=== PATIENT | female | born 1980 | race Caucasian/White ===

== ENCOUNTER 2017-05-17 08:39 | Day surgery (SDC) | payer BC ==
[2017-05-15 16:36] LABS: MEAN CORPUSCULAR HEMOGLOBIN 29.9 PG (27.0-31.0); MEAN CORPUSCULAR HGB CONC 33.8 % (33.0-36.5); MEAN CORPUSCULAR VOLUME 88.5 FL (78-98); MEAN PLATELET VOLUME 8.2 FL (7.4-10.4); PRE OP HEMATOCRIT 39.8 % (35.0-45.0); PRE OP HEMOGLOBIN 13.4 g/dL (12.0-16.0); PRE OP PLATELET COUNT 193 X10'3 (140-440); RED BLOOD COUNT 4.49 X10'6 (4.20-5.60); RED CELL DISTRIBUTION WIDTH 13.2 % (11.5-14.5)
[2017-05-15 16:37] LABS: CLARITY,URINE Clear (Clear); COLOR,URINE Yellow (Yellow); GLUCOSE, URINE Negative (Neg); KETONES,URINE Negative (Neg); LEUKOCYTE ESTERASE ,URINE Negative (Neg); NITRITES, URINE Negative (Neg); OCCULT BLOOD,URINE Negative (Neg); PROTEIN,URINE Negative (Neg); UROBILINOGEN,URINE 0.2 E.U/dL (0.2-1.0)
[2017-05-15 16:40] LABS: UA COLLECTION TYPE CLN CATCH MIDSTREAM
[2017-05-15 16:47] LABS: HCG SERUM QL NEGATIVE
[2017-05-15 16:51] LABS: ALBUMIN 3.3 G/DL (3.4-5.0); ALKALINE PHOSPHATASE 69 IU/L (46-116); BLOOD UREA NITROGEN 14 MG/DL (7-18); BUN/CREATININE RATIO 12.7 (6.6-38.0); CALCIUM 8.6 MG/DL (8.5-10.1); CHLORIDE 105 MMOL/L (99-107); PRE OP ALT 29 U/L (30-65); PRE OP ANION GAP 4 (8-16); PRE OP AST 14 U/L (10-37); PRE OP BILIRUB, TOTAL 0.3 MG/DL (0.0-1.0); PRE OP GLUCOSE 68 MG/DL (70-104); PRE OP SODIUM 140 MMOL/L (135-145); TOTAL PROTEIN 6.7 G/DL (6.4-8.2); eGFR 56 ML/MIN
[2017-05-15 17:04] LABS: PRE OP POTASSIUM 3.1 MMOL/L (3.4-5.1)
[2017-05-15 18:27] LABS: PLATELET ESTIMATE NORMAL; TOTAL CELLS COUNTED 100
[2017-05-15 18:28] LABS: SMUDGE CELLS 1+
[2017-05-17] VITALS (21 sets, daily range): BP systolic 93–144; BP diastolic 55–97
[~2017-05-17] VITALS: Ht 167.6 cm; Wt 74.3 kg
[~2017-05-17 08:39] MED LIST: AMIT-189 PO; AZIT500T2 PO; CEFOXITIN 1000 MG in NS IV.SOLN 100 ML IV ONE; GLUC-131 PO; MULT-1085 PO
[2017-05-17] MEDS ORDERED: LIDOcaine 1% (10mg/ml) 2ml vial ONE (09:04)
[2017-05-17] MEDS ORDERED: BUPIVAcaine/PF 2.5 mg/ml (0.25%) 30ml vial ONE (09:15)
[2017-05-17] MEDS ORDERED: epiNEPHrine 1 mg/ml inj ONE (09:15)
[2017-05-17] MEDS ORDERED: clindamycin phosphate 40gm vag cream ONE (09:15)
[2017-05-17] MEDS ORDERED: famotidine 20mg tablet PO ONE (09:15)
[2017-05-17] MEDS ORDERED: neomy sulf/polymyxin B sulf. GU irrigation 1ml amp IR ONE (09:16)
[2017-05-17] MEDS ORDERED: vasoPRESSIN 20 units/ml inj. ONE (09:16)
[2017-05-17] MEDS ORDERED: ringers solution, lacted 1,000 ML IV SCH ×2 (09:34→12:03)
[2017-05-17 09:46] LABS: ALBUMIN 3.2 G/DL (3.4-5.0); ANION GAP 4 (8-16); BLOOD UREA NITROGEN 11 MG/DL (7-18); BUN/CREATININE RATIO 13.8 (6.6-38.0); CALCIUM 8.5 MG/DL (8.5-10.1); CHLORIDE 103 MMOL/L (99-107); GLUCOSE 94 MG/DL (70-104); POTASSIUM 3.8 MMOL/L (3.5-5.1); SODIUM 138 MMOL/L (135-145); TOTAL CARBON DIOXIDE 30.7 MMOL/L (24-32); eGFR 81 ML/MIN
[2017-05-17] MEDS ORDERED: sevoflurane 250ml liquid IH ONE (10:48)
[2017-05-17] MEDS ORDERED: fentaNYL/PF 50MCG/1 ML 2ML syringe ONE ×2 (10:50→11:13)
[2017-05-17] MEDS ORDERED: midazolam 2 mg/2 ml injection ONE (10:50)
[2017-05-17] MEDS ORDERED: ePHEDrine 50MG/ML INJ. ONE (11:18)
[2017-05-17] MEDS ORDERED: rocuronium 10mg/ml inj IV ONE (11:18)
[2017-05-17] MEDS ORDERED: LIDOcaine 2% (20mg/ml) 5ml vial ONE (11:18)
[2017-05-17] MEDS ORDERED: propofol inj 20 ML IV ONE (11:18)
[2017-05-17] MEDS ORDERED: ondansetron/PF 4mg/2ml inj ONE (11:19)
[2017-05-17] MEDS ORDERED: dexamethasone sod phosphate 4mg/ml inj. ONE (11:19)
[2017-05-17] MEDS ORDERED: neostigmine methylsulfate 1 MG/ML 10ml vial ONE (11:19)
[2017-05-17] MEDS ORDERED: glycopyrrolate 0.2mg/ml inj ONE (11:19)
[2017-05-17] MEDS ORDERED: BUPIVAcaine/PF 2.5 mg/ml (0.25%) 30ml vial IJ ONE (11:40)
[2017-05-17] MEDS ORDERED: meperidine/PF 25mg/ml syringe IV PRN ×2 (12:05)
[2017-05-17] MEDS ORDERED: proCHLORperazine 10 MG/2 ml inj IV PRN (12:05)
[2017-05-17] MEDS ORDERED: ondansetron/PF 4mg/2ml inj IV PRN (12:05)
[2017-05-17] MEDS ORDERED: diphenhydrAMINE 50 mg/ml inj IV PRN (12:25)
[2017-05-17] MEDS ORDERED: magnesium hydroxide 30ml (MOM) UD suspension PO PRN (12:25)
[2017-05-17] MEDS ORDERED: LORazepam 2 mg/ml vial IV PRN (12:25)
[2017-05-17] MEDS ORDERED: normal saline 500ml IV soln 500 ML IV PRN (12:25)
[2017-05-17] MEDS ORDERED: metoclopramide 5 mg/ml inj IV PRN (12:25)
[2017-05-17] MEDS ORDERED: HYDROcodone/acetaminophen 10/325mg tab PO PRN ×2 (12:25)
[2017-05-17] MEDS ORDERED: temazepam 15mg capsule PO PRN (12:25)
[2017-05-17] MEDS: ketorolac trometh. 30mg/ml inj. IV PRN ×2 (12:44→20:10)
[2017-05-17] MEDS: meperidine/PF 25mg/ml syringe IV PRN ×4 (12:44→14:11)
[2017-05-17] MEDS: simethicone 80mg chew tab PO SCH ×2 (13:00→18:02)
[2017-05-17] MEDS: ondansetron/PF 4mg/2ml inj IV PRN ×2 (15:43→23:12)
[2017-05-17] MEDS: HYDROcodone/acetaminophen 10/325mg tab PO PRN ×2 (15:44→23:12)
[2017-05-17] MEDS: docusate sod 100mg capsule PO SCH (20:09)
[2017-05-18] VITALS: BP 102/62
[2017-05-18] MEDS: ketorolac trometh. 30mg/ml inj. IV PRN ×2 (02:26→10:13)
[2017-05-18 04:57] LABS: BASOPHILS % (AUTO) 0.1 % (0-1); EOSINOPHILS % (AUTO) 0.1 % (0-6); HEMATOCRIT 36.8 % (35.0-45.0); HEMOGLOBIN 13.1 g/dl (12.0-16.0); LYMPHOCYTES # (AUTO) 0.8 X10'3 (1.1-4.8); LYMPHOCYTES % (AUTO) 4.6 % (21-51); MEAN CORPUSCULAR HEMOGLOBIN 31.1 PG (27.0-31.0); MEAN CORPUSCULAR HGB CONC 35.6 % (33.0-36.5); MEAN CORPUSCULAR VOLUME 87.3 FL (78-98); MEAN PLATELET VOLUME 8.4 FL (7.4-10.4); MONOCYTES # (AUTO) 0.9 X10'3 (0-0.9); MONOCYTES % (AUTO) 5.1 % (2-12); NEUTROPHILS # (AUTO) 15.9 X10'3 (1.8-7.7); NEUTROPHILS % (AUTO) 90.1 % (42-75); PLATELET COUNT 197 X10'3 (140-440); RED BLOOD COUNT 4.22 X10'6 (4.20-5.60); RED CELL DISTRIBUTION WIDTH 11.8 % (11.5-14.5); WHITE BLOOD COUNT 17.6 X10'3 (4.5-11.0)
[2017-05-18 05:10] LABS: ALBUMIN 2.9 G/DL (3.4-5.0); ANION GAP 4 (8-16); BLOOD UREA NITROGEN 8 MG/DL (7-18); BUN/CREATININE RATIO 7.3 (6.6-38.0); CALCIUM 8.6 MG/DL (8.5-10.1); CHLORIDE 102 MMOL/L (99-107); GLUCOSE 141 MG/DL (70-104); POTASSIUM 4.5 MMOL/L (3.5-5.1); SODIUM 138 MMOL/L (135-145); TOTAL CARBON DIOXIDE 31.9 MMOL/L (24-32); eGFR 56 ML/MIN
[2017-05-18] MEDS: HYDROcodone/acetaminophen 10/325mg tab PO PRN (05:37)
[2017-05-18] MEDS: ondansetron/PF 4mg/2ml inj IV PRN (05:37)
[2017-05-18 07:00] VITALS: BP 133/60
[2017-05-18] MEDS ORDERED: enoxaparin 40mg/0.4ml syringe SQ SCH (08:00)
[2017-05-18] MEDS: simethicone 80mg chew tab PO SCH (08:05)
[2017-05-18] MEDS: docusate sod 100mg capsule PO SCH (08:05)
== END 2017-05-18 11:45 | disposition home or self-care (01) ==
LOC: PAS 08:39 → SUR 3N 12:25 → PAS 05-18 11:45
PROVIDERS: ATTEND Obstetrics & Gynecology Obstetrics
DX: D25.9 Leiomyoma of uterus, unspecified (principal); N72 Inflammatory disease of cervix uteri; N94.6 Dysmenorrhea, unspecified; N83.8 Other noninflammatory disorders of ovary, fallopian tube and broad ligament; G43.909 Migraine, unspecified, not intractable, without status migrainosus; K21.9 Gastro-esophageal reflux disease without esophagitis; J45.909 Unspecified asthma, uncomplicated; Z86.718 Personal history of other venous thrombosis and embolism; Z98.890 Other specified postprocedural states; Z98.51 Tubal ligation status; Z79.1 Long term (current) use of non-steroidal anti-inflammatories (NSAID); Z79.899 Other long term (current) drug therapy; Z86.73 Personal history of transient ischemic attack (TIA), and cerebral infarction without residual deficits; Z88.6 Allergy status to analgesic agent
CPT/HCPCS: 36415; 58552; 71046; 80048; 80053; 81003; 84703; 85025; 86885; 86900; 86901; 87070; A4315; J0171; J0694; J1100; J1650; J1885; J2001; J2175; J2250; J2405; J2704; J2710; J3010; J3490; J7030; J7120; A7000

== ENCOUNTER 2021-08-02 17:45 | Inpatient (IN) | payer BC ==
[~2021-08-02] VITALS: Ht 165.1 cm; Wt 71.7 kg
[~2021-08-02 17:45] MED LIST changes: -CEFOXITIN 1000 MG in NS IV.SOLN 100 ML IV ONE
--- NOTE | 2021-08-02 17:55 | NUR ---
TO CT AT THIS TIME VIA WHEELCHAIR.
--- NOTE | 2021-08-02 18:10 | NUR ---
Arrived to ER bed 16 for stroke alert level1 , scans done and neuro exam being done.
--- NOTE | 2021-08-02 18:28 | NUR ---
STROKE RN IS AT BEDSIDE. JOSH IN ROOM.
[2021-08-02 18:29] LABS: BASOPHILS % (AUTO) 0.5 % (0-1); EOSINOPHILS # (AUTO) 0.1 X10'3 (0-0.9); EOSINOPHILS % (AUTO) 2.3 % (0-6); HEMATOCRIT 39.2 % (35.0-45.0); HEMOGLOBIN 13.5 g/dl (12.0-16.0); LYMPHOCYTES # (AUTO) 1.2 X10'3 (1.1-4.8); LYMPHOCYTES % (AUTO) 26.1 % (21-51); MEAN CORPUSCULAR HEMOGLOBIN 29.6 PG (27.0-31.0); MEAN CORPUSCULAR HGB CONC 34.5 g/dL (33.0-36.5); MEAN CORPUSCULAR VOLUME 85.9 FL (78-98); MEAN PLATELET VOLUME 8.8 FL (7.4-10.4); MONOCYTES # (AUTO) 0.4 X10'3 (0-0.9); MONOCYTES % (AUTO) 10.1 % (2-12); NEUTROPHILS # (AUTO) 2.7 X10'3 (1.8-7.7); PLATELET COUNT 220 X10'3 (140-440); RED BLOOD COUNT 4.57 X10'6 (4.20-5.60); RED CELL DISTRIBUTION WIDTH 13.4 % (11.5-14.5); WHITE BLOOD COUNT 4.5 X10'3 (4.5-11.0)
[2021-08-02 18:43] LABS: APTT 28 SECONDS (22-32)
[2021-08-02 18:45] LABS: ALANINE AMINOTRANSFERASE 36 U/L (12-78); ALBUMIN/GLOBULIN RATIO 1.2 (1.1-1.5); ALKALINE PHOSPHATASE 55 IU/L (46-116); ANION GAP 8 (8-16); ASPARTATE AMINO TRANSFERASE 21 U/L (10-37); BILIRUBIN,TOTAL 0.4 MG/DL (0.1-1.0); BLOOD UREA NITROGEN 14 MG/DL (7-18); BUN/CREATININE RATIO 17.3 (6.6-38.0); CHLORIDE 105 MMOL/L (99-107); CREATININE 0.81 MG/DL (0.40-0.90); GLUCOSE 100 MG/DL (70-104); POTASSIUM 3.5 MMOL/L (3.5-5.1); SODIUM 140 MMOL/L (135-145); TOTAL CARBON DIOXIDE 26.6 MMOL/L (24-32); TOTAL PROTEIN 7.4 G/DL (6.4-8.2); eGFR 78 ML/MIN
--- NOTE | 2021-08-02 18:45 | NUR ---
with the nurse swallow assessment I noted that she does not have a gag reflex bilaterally but she swallows without issues, no signs of aspiration. She does have head ache above the right eye that is pounding/pressure in description with 7/10 pain. She has tingling to the left face and left leg still and still with vision issues. She can't see the wall with her left eye and she can only see my face/ and my left eye not my right eye. I have asked word complaint clerk to call SOC to have neurologist see .
--- NOTE | 2021-08-02 19:00 | NUR ---
At about this time neurology did the telemedicine evaluation, she gave me verbal consent to do the SOC evaluation.
--- NOTE | 2021-08-02 19:18 | NUR ---
I started giving her the TPA at this time with the bolus and then started the infusion.
[2021-08-02] MEDS ORDERED: proCHLORperazine 10 MG/2 ml inj IV ONE (19:40)
[2021-08-02 19:45] VITALS: BP 118/79
[2021-08-02] MEDS ORDERED: normal saline 1000ml 1,000 ML IV ONE (20:30)
[2021-08-02] MEDS ORDERED: PERFLUTREN PROTEIN-A MICROSPHR (Optison) 0.22 MG/ML 3ML VIAL IV PRN (21:30)
[2021-08-02] MEDS: normal saline 1000ml 1,000 ML IV SCH (21:42)
--- NOTE | 2021-08-02 22:55 | NUR ---
I have received report from Marleny MCCOY form ED and had the opportunity to ask questions. RM is set up and ready for PT arrival.
[2021-08-02 23:30] VITALS: BP 112/75
--- NOTE | 2021-08-02 23:30 | NUR ---
PT arrived to unit @ [id number]. 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 PT states that the peripheral vision has slightly improved to her RT eye, she is able to see objects that are straight ahead, PT states that she is still having some visual disturbances in the LT eye, she states that there is a diagonal line in her left eye, she can see from the RT half of the LT eye. PT has 20g PIV to Bilat AC's. Bed is locked and low. Call light in reach. Will continue to monitor.
[2021-08-02 23:45] VITALS: BP 112/75
[2021-08-03] VITALS (38 sets, daily range): BP systolic 96–124; BP diastolic 62–76
[2021-08-03] MEDS ORDERED: acetaminophen 325mg tablet PO ONE ×2 (02:25→02:45)
--- NOTE | 2021-08-03 02:45 | NUR ---
Call placed to On-call Tele Med ICU MD. PT is complaining of headache to RT side. Received a one time order of 650mg PO Tylenol.
--- NOTE | 2021-08-03 04:30 | NUR ---
PT stated she has improvement to her vision.
--- NOTE | 2021-08-03 06:34 | NUR ---
Problems reprioritized. Patient report given, questions answered & plan of care reviewed with Huy MCCOY.
--- NOTE | 2021-08-03 07:18 | NUR ---
Patient in room ICU 2042. I have received report from Caprice MCCOY and had the opportunity to ask questions and assume patient care.
[2021-08-03 07:27] LABS: CHOL/HDL RATIO 2.4 (0.00-4.99); CHOLESTEROL 131 MG/DL (0-200); HDL CHOLESTEROL 55 MG/DL (35-60); LDL CHOLESTEROL 66 MG/DL (50-100); TRIGLYCERIDES 69 MG/DL (20-135)
[2021-08-03 07:53] LABS: BASOPHILS % (AUTO) 0.5 % (0-1); EOSINOPHILS # (AUTO) 0.1 X10'3 (0-0.9); EOSINOPHILS % (AUTO) 2.6 % (0-6); HEMOGLOBIN 13.6 g/dl (12.0-16.0); LYMPHOCYTES # (AUTO) 0.9 X10'3 (1.1-4.8); LYMPHOCYTES % (AUTO) 21.1 % (21-51); MEAN CORPUSCULAR HEMOGLOBIN 28.9 PG (27.0-31.0); MEAN CORPUSCULAR HGB CONC 34.1 g/dL (33.0-36.5); MEAN CORPUSCULAR VOLUME 84.9 FL (78-98); MEAN PLATELET VOLUME 8.8 FL (7.4-10.4); MONOCYTES # (AUTO) 0.5 X10'3 (0-0.9); MONOCYTES % (AUTO) 10.5 % (2-12); NEUTROPHILS # (AUTO) 2.8 X10'3 (1.8-7.7); NEUTROPHILS % (AUTO) 65.3 % (42-75); PLATELET COUNT 200 X10'3 (140-440); RED BLOOD COUNT 4.71 X10'6 (4.20-5.60); RED CELL DISTRIBUTION WIDTH 13.4 % (11.5-14.5); WHITE BLOOD COUNT 4.3 X10'3 (4.5-11.0)
[2021-08-03 08:15] LABS: ALANINE AMINOTRANSFERASE 30 U/L (12-78); ALBUMIN 3.5 G/DL (3.4-5.0); ALBUMIN/GLOBULIN RATIO 1.1 (1.1-1.5); ALKALINE PHOSPHATASE 53 IU/L (46-116); ANION GAP 9 (8-16); ASPARTATE AMINO TRANSFERASE 20 U/L (10-37); BILIRUBIN,TOTAL 0.8 MG/DL (0.1-1.0); BLOOD UREA NITROGEN 11 MG/DL (7-18); BUN/CREATININE RATIO 15.7 (6.6-38.0); CALCIUM 8.5 MG/DL (8.5-10.1); CHLORIDE 108 MMOL/L (99-107); GLUCOSE 93 MG/DL (70-104); POTASSIUM 3.5 MMOL/L (3.5-5.1); SODIUM 140 MMOL/L (135-145); TOTAL CARBON DIOXIDE 22.9 MMOL/L (24-32); TOTAL PROTEIN 6.7 G/DL (6.4-8.2); eGFR > 90 ML/MIN
[2021-08-03] MEDS ORDERED: acetaminophen 325mg tablet PO PRN (08:55)
--- NOTE | 2021-08-03 10:25 | NUR ---
Upon report this morning, PT had reported to night nurse that her admit baseline vision changes had improved throughout the night, but have still not returned to normal. I spoke with her upon first assessment to get a better idea of what kind of vision changes she experienced and is continuing to experience. Pt states that symptoms started yesterday evening (08/02/21) while she was getting ready to leave work. She was on the phone with her and had an immediate overwhelming feeling of left sided tingling from head to toe. She states it felt like "Pins and needles" along with "numbness". She then had a change in her vision, and a sharp shooting pain in her right caodaism. She stated her vision was very blurry and that horizontally, her vision seemed to be split and she was unable to see the bottom half of anything in her vision field. This morning she stated her vision is better. The blurriness has subsided a little on both sides, though she does still have the horizontal vision change. She said it seems to be worse in the left eye than the right, and though its better than yesterday, its still not at all normal. At 0845 she reported she still is experiencing a headache on her right side. She was given tylenol in the ED at 0245, but stated that it didnt help. Dr Bae came into the room about 0900 and I asked if we could give her something since she had no PRNs ordered. He stated to give her another dose of tylenol, and if that didnt work, he would order something a little stronger. I put in a verbal order for 650mg tylenol (dose verbally approved by Dr Torres) and administered it at 0905. At 1030, pt reported there was no change in relief. Dr Torres verbally ordered a 1x dose of 2mg morphine and 4mg of zofran PRN during rounds.
[2021-08-03] MEDS ORDERED: morphine 2 MG/ML inj. syringe IV ONE (10:30)
[2021-08-03] MEDS ORDERED: ondansetron/PF 4mg/2ml inj IV PRN (10:30)
[2021-08-03] MEDS ORDERED: KEN0.1O TOP (11:44)
[2021-08-03] MEDS: pantoprazole 40mg Tablet.DR PO SCH (12:05)
[2021-08-03] MEDS: normal saline 1000ml 1,000 ML IV SCH (12:06)
[2021-08-03 15:13] LABS: HEMOGLOBIN A1C 5.3 % (4.5-6.2)
--- NOTE | 2021-08-03 15:45 | NUR ---
Pt stated earlier that the morphine dose (2mg) worked extremely well for her headache. At 1530 she stated her headache is starting to return and asked if she could have another dose. I got a verbal order from Dr Bae for a Q4 PRN order of morphine 2mg.
[2021-08-03] MEDS: morphine 2 MG/ML inj. syringe IV PRN ×2 (15:57→20:53)
[2021-08-03] MEDS: ondansetron/PF 4mg/2ml inj IV PRN ×2 (15:58→20:52)
--- NOTE | 2021-08-03 18:00 | NUR ---
Pt transported to and from MRI without incident. Returned to room, hooked back up to IV and vitals. Vitals stable upon return.
--- NOTE | 2021-08-03 18:19 | NUR ---
Problems reprioritized. Patient report given, questions answered & plan of care reviewed with Hernandez..
--- NOTE | 2021-08-03 18:38 | NUR ---
Shift note: I reviewed Adams's RN, orientee from PCU, charting on this pt as well as her care and her documentation reflects the care provided for this pt. Problems reprioritized. Patient report given, questions answered & plan of care reviewed with Ty MCCOY.
--- NOTE | 2021-08-03 18:43 | NUR ---
MRI note Pt was taken to MRI at about 1700 and returned at 1755. Tolerated MRI well. Pt was able to ambulate from bed to w/c, w/c to MRI bed and back to bed w/minimal assistance.
[2021-08-03] MEDS ORDERED: aspirin 325mg tablet, delayed-release (Ecotrin) PO ONE (18:50)
--- NOTE | 2021-08-03 22:20 | NUR ---
Upon receiving report at 1800, bedside neuro assessment done with off going RN. No new symptoms noted. received call from radiologist who stated MRI showed acute area of infarct, results were then conveyed to DR. Torres who was at bedside who then called neurologist to update on MRI results. Dr Torres ordered one time dose of aspirin to be given tonight. Post TPA assessments to complete tonight at 1945. See flowsheets for assessment findings.
[2021-08-04] VITALS (8 sets, daily range): BP systolic 92–110; BP diastolic 54–70
[2021-08-04] MEDS: normal saline 1000ml 1,000 ML IV SCH ×2 (02:06→16:24)
[2021-08-04] MEDS: ondansetron/PF 4mg/2ml inj IV PRN (03:31)
[2021-08-04] MEDS: morphine 2 MG/ML inj. syringe IV PRN (03:32)
[2021-08-04 05:51] LABS: BASOPHILS % (AUTO) 0.4 % (0-1); EOSINOPHILS # (AUTO) 0.1 X10'3 (0-0.9); EOSINOPHILS % (AUTO) 2.9 % (0-6); HEMATOCRIT 39.2 % (35.0-45.0); HEMOGLOBIN 13.2 g/dl (12.0-16.0); LYMPHOCYTES # (AUTO) 1.1 X10'3 (1.1-4.8); LYMPHOCYTES % (AUTO) 20.9 % (21-51); MEAN CORPUSCULAR HEMOGLOBIN 29.1 PG (27.0-31.0); MEAN CORPUSCULAR HGB CONC 33.5 g/dL (33.0-36.5); MEAN CORPUSCULAR VOLUME 86.7 FL (78-98); MEAN PLATELET VOLUME 8.6 FL (7.4-10.4); MONOCYTES # (AUTO) 0.6 X10'3 (0-0.9); MONOCYTES % (AUTO) 11.6 % (2-12); NEUTROPHILS # (AUTO) 3.2 X10'3 (1.8-7.7); NEUTROPHILS % (AUTO) 64.2 % (42-75); PLATELET COUNT 188 X10'3 (140-440); RED BLOOD COUNT 4.52 X10'6 (4.20-5.60); RED CELL DISTRIBUTION WIDTH 13.7 % (11.5-14.5); WHITE BLOOD COUNT 5.1 X10'3 (4.5-11.0)
[2021-08-04 06:11] LABS: ALBUMIN 3.2 G/DL (3.4-5.0); ANION GAP 8 (8-16); BLOOD UREA NITROGEN 10 MG/DL (7-18); BUN/CREATININE RATIO 13.3 (6.6-38.0); CALCIUM 8.3 MG/DL (8.5-10.1); CHLORIDE 109 MMOL/L (99-107); CREATININE 0.75 MG/DL (0.40-0.90); GLUCOSE 106 MG/DL (70-104); POTASSIUM 3.8 MMOL/L (3.5-5.1); SODIUM 139 MMOL/L (135-145); TOTAL CARBON DIOXIDE 22.2 MMOL/L (24-32); eGFR 85 ML/MIN
--- NOTE | 2021-08-04 06:49 | NUR ---
Patient in room ICU 2042. I have received report from Hernandez MCCOY and had the opportunity to ask questions and assume patient care.
[2021-08-04] MEDS: pantoprazole 40mg Tablet.DR PO SCH (07:42)
--- NOTE | 2021-08-04 08:00 | NUR ---
Left AC 20 dharmesh PIV removed per patient request. She stated it was very sore and uncomfortable. Catheter was intact upon removal, site was taped with gauze with minimal bleeding.
--- NOTE | 2021-08-04 08:37 | NUR ---
Start of shift physical assessment, neuro assessment, and vitals done. Vitals stable, normal assessment, unchanged neuro assessment. Patient is alert and says her headache is minimal currently. She states she wants to hold off on the next dose of morphine to see how she does. She is curious if it will be better today without medication, or if it continues to be severe.
--- NOTE | 2021-08-04 09:00 | NUR ---
D/C of NS infusion. Patient is drinking PO fluids.
[2021-08-04] MEDS: aspirin 81mg, enteric-coated 1 TAB TABLET.DR PO SCH (11:13)
--- NOTE | 2021-08-04 14:28 | NUR ---
I have received report from NADINE Samuels and had the opportunity to ask questions and assume patient care.
--- NOTE | 2021-08-04 14:30 | NUR ---
Pt transported via wheelchair to Surgical floor, room 348. Transfer of care report given to RN prior to transport.
--- NOTE | 2021-08-04 14:35 | NUR ---
Pt arrived to surgical floor via wheelchair, accompanied by son. Pt settled in room 348B, BLL, call light within reach.
--- NOTE | 2021-08-04 18:30 | NUR ---
Problems reprioritized. Patient report given, questions answered & plan of care reviewed with NADINE Everett.
[2021-08-05] VITALS: BP 100/66
--- NOTE | 2021-08-05 06:29 | NUR ---
Patient in room [facility]RE[facility] 348. I have received report from NADINE Everett and had the opportunity to ask questions and assume patient care.
[2021-08-05 06:52] LABS: BASOPHILS % (AUTO) 0.6 % (0-1); EOSINOPHILS # (AUTO) 0.2 X10'3 (0-0.9); EOSINOPHILS % (AUTO) 3.6 % (0-6); HEMATOCRIT 40.3 % (35.0-45.0); HEMOGLOBIN 13.5 g/dl (12.0-16.0); LYMPHOCYTES # (AUTO) 1.3 X10'3 (1.1-4.8); LYMPHOCYTES % (AUTO) 25.5 % (21-51); MEAN CORPUSCULAR HEMOGLOBIN 28.9 PG (27.0-31.0); MEAN CORPUSCULAR HGB CONC 33.6 g/dL (33.0-36.5); MEAN CORPUSCULAR VOLUME 86.1 FL (78-98); MEAN PLATELET VOLUME 8.8 FL (7.4-10.4); MONOCYTES # (AUTO) 0.6 X10'3 (0-0.9); MONOCYTES % (AUTO) 11.1 % (2-12); NEUTROPHILS % (AUTO) 59.2 % (42-75); PLATELET COUNT 194 X10'3 (140-440); RED BLOOD COUNT 4.67 X10'6 (4.20-5.60); RED CELL DISTRIBUTION WIDTH 13.7 % (11.5-14.5)
[2021-08-05 07:00] VITALS: BP 86/46
[2021-08-05 07:53] LABS: ALBUMIN 3.5 G/DL (3.4-5.0); ANION GAP 9 (8-16); BLOOD UREA NITROGEN 14 MG/DL (7-18); BUN/CREATININE RATIO 17.7 (6.6-38.0); CALCIUM 8.9 MG/DL (8.5-10.1); CHLORIDE 107 MMOL/L (99-107); CREATININE 0.79 MG/DL (0.40-0.90); GLUCOSE 104 MG/DL (70-104); MAGNESIUM 2.1 MG/DL (1.5-2.4); POTASSIUM 3.9 MMOL/L (3.5-5.1); SODIUM 140 MMOL/L (135-145); TOTAL CARBON DIOXIDE 23.6 MMOL/L (24-32); eGFR 80 ML/MIN
[2021-08-05] MEDS: pantoprazole 40mg Tablet.DR PO SCH (09:02)
[2021-08-05] MEDS: aspirin 81mg, enteric-coated 1 TAB TABLET.DR PO SCH (09:03)
[2021-08-05] MEDS ORDERED: ASPI-1071 PO (10:14)
[2021-08-05 11:00] VITALS: BP 99/66
--- NOTE | 2021-08-05 13:05 | NUR ---
Pt discharged to home, with all belongings, in private vehicle, accompanied by . Discharge instructions and medications reviewed. New prescriptions sent to [facility]. Pt instructed to follow up with PCP once established, and encouraged to follow up with stroke neurologist. Pt instructed to return to ED should symptoms return, signs and symptoms of stroke reviewed. Pt states understanding and willingness to comply with all discharge instructions. IV DC'd, cannula intact. Pt escorted to front lobby by PCT.
== END 2021-08-05 13:02 | disposition home or self-care (01) | DRG 61 ==
LOC: ER 17:47 → ICU 2S 21:28 → SUR 3N 08-04 14:39
PROVIDERS: ADMIT Internal Medicine; ATTEND Internal Medicine
DX: I63.89 Other cerebral infarction (principal); G93.6 Cerebral edema; Z20.822 Contact with and (suspected) exposure to COVID-19; H53.47 Heteronymous bilateral field defects; G43.909 Migraine, unspecified, not intractable, without status migrainosus; J45.909 Unspecified asthma, uncomplicated; G89.29 Other chronic pain; Z86.73 Personal history of transient ischemic attack (TIA), and cerebral infarction without residual deficits; Z88.5 Allergy status to narcotic agent; Z98.51 Tubal ligation status; Z79.899 Other long term (current) drug therapy
CPT/HCPCS: 36415; 70450; 70544; 70547; 70551; 71045; 80048; 80053; 80061; 82948; 83036; 83735; 84484; 85025; 85610; 85730; 87081; 87635; 92508; 92616; 93005; 93306; 97112; 97161; 97530; 99285; C9803; G0378; J0780; J2270; J2405; J2997; J7030

== ENCOUNTER 2022-03-24 10:48 | Emergency (ER) | payer BC ==
[~2022-03-24] VITALS: Ht 167.6 cm; Wt 74.1 kg
[~2022-03-24 10:48] MED LIST changes: -AMIT-189 PO; +ASPI-1071 PO; -AZIT500T2 PO; -GLUC-131 PO; +KEN0.1O TOP; -MULT-1085 PO
--- NOTE | 2022-03-24 12:18 | NUR ---
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 PT REPORTS TAKING ELIQUIS 5MG BID AFTER CVA IN JULY OF 2021. PT REPORTS "PULLING AND CRAMPING PAIN 3/10" RIGHT INNER THIGH. GENERAL ASSESSMENT DONE, CHARGE NURSE MERYL RN NOTIFIED TO VIEW ASSESSMENT DONE.
--- NOTE | 2022-03-24 12:21 | NUR ---
I reviewed and agree with general assessment performed by adarsh MONIQUE.
--- NOTE | 2022-03-24 13:10 | NUR ---
VASCULAR NOT AVAILABLE TODAY 03-24-22, PROVIDER CLEOO NOTIFIED.
[2022-03-24 13:31] LABS: D-DIMER 0.23 MG/L FEU (0-0.50)
[2022-03-24 14:06] VITALS: BP 112/74
== END 2022-03-24 14:09 | disposition home or self-care (01) ==
LOC: ER 10:49
DX: M79.651 Pain in right thigh (principal); G89.29 Other chronic pain; Z79.899 Other long term (current) drug therapy; Z79.82 Long term (current) use of aspirin
CPT/HCPCS: 36415; 85379; 99283; 99285

== ENCOUNTER 2024-11-18 20:45 | Emergency (ER) | payer BC ==
[~2024-11-18] VITALS: Ht 167.6 cm; Wt 65.0 kg
[2024-11-18 21:05] LABS: MEAN PLATELET VOLUME 8.6 FL (7.4-10.4); RED CELL DISTRIBUTION WIDTH 14.0 % (11.5-14.5)
[2024-11-18 21:21] LABS: CREATININE 0.95 MG/DL (0.40-0.90); TOTAL CARBON DIOXIDE 28.3 MMOL/L (24-32); eCRCL 71 ML/MIN; eGFR 64 ML/MIN
--- NOTE | 2024-11-18 22:01 | Physician Documentation ---
History of Present Illness ~ Chief Complaint: Abdominal Pain Stated Complaint: ABDOMINAL PAIN Time Seen by MD: 21:49 Primary Medical Doctor: [facility] Mode of Arrival: POV, Ambulatory HPI Patient presents to the emergency room with periumbilical abdominal pain that began at about noon today. She had not had lunch yet. She had a nonfasting b reakfast. Symptoms have improved. Reports normal bladder and bowel but does have distant history of constipation. No fevers. Medication Reconciliation Allergies: Coded Allergies: No Known Allergies (Unverified , 03/24/22) Scheduled Aspirin (Ecotrin*), 1 TAB PO DAILY Triamcinolone Acetonide 0.1% Crm* (Kenalog 0.1% Crm*), 1 APPLIC TOP TID, (Reported) Past Medical History Past Medical History: CVA/TIA/Stroke, Vertigo, *CARDIOVASCULAR*, Asthma, Chronic Pain Past Surgical History: orthopedic surgeries, tubal ligation Alcohol Use: Occasionally Drug Use: none Lives with: Family Lives In: Home Occupation: employed Review of Systems ROS All review of systems negative except as per HPI Physical Exam Vital Signs: Temperature: 97.8, Heart Rate: 89, Respiratory Rate: 16, BP: 129/83, Pulse Oximetry: 97, Weight: 65.000 Oxygen Flow Rate: 0 Physical Exam General: Patient is awake, alert, oriented x4 in no acute distress and well appearing.~ Head: Normocephalic and atraumatic. Eyes: Conjunctival normal. EOMI. PERRL. ENT: Mucous membranes moist. Neck: Supple, trachea is midline. Chest: Clear to auscultation bilaterally without rales, rhonchi, or wheezes. There is no accessory muscle use or retractions. Cardiac: RRR without murmurs, gallops, or rubs. Abd: Soft, nondistended, mild tenderness to periumbilical area with deep palpation. No peritonitis Progress Results/Orders Results/Orders Completed Orders - MALCOLM GOMEZ MD Urinalysis, Cult If Indicated (11/18/24 20:47) Cbc/Diff (11/18/24 20:47) Lipase (11/18/24 20:47) CMP (11/18/24 20:47) Ondansetron Disint. Tablet (Zofran Odt T (11/18/24 21:55) Vital Signs 11/18/24 20:47 Temp 97.8 Pulse 89 Resp 16 B/P (MAP) 129/83 Pulse Ox 97 O2 Flow Rate 0 Laboratory Tests Test 11/18/24 20:52 11/18/24 20:55 Urine Specimen Description Cln catch midstream Urine Color Yellow Urine Clarity Clear Urine pH 6.0 Urine Specific [place] <=1.005 Urine Protein Negative Urine Glucose (UA) Negative Urine Ketones Negative Urine Occult Blood Negative Urine Nitrite Negative Urine Bilirubin Negative Urine Urobilinogen 0.2 Urine Leukocyte Esterase Negative Urine Culture Indicated Not ind Volume Urine Centrifuged 10 ml Urine Comment White Blood Count 7.1 Red Blood Count 4.74 Hemoglobin 14.0 Hematocrit 41.1 Mean Corpuscular Volume 86.7 Mean Corpuscular Hemoglobin 29.5 Mean Corpuscular Hemoglobin Concent 34.0 Red Cell Distribution Width 14.0 Platelet Count 246 Mean Platelet Volume 8.6 Neutrophils (%) (Auto) 69.5 Lymphocytes (%) (Auto) 21.6 Monocytes (%) (Auto) 7.2 Eosinophils (%) (Auto) 1.2 Basophils (%) (Auto) 0.5 Neutrophils # (Auto) 4.9 Lymphocytes # (Auto) 1.5 Monocytes # (Auto) 0.5 Eosinophils # (Auto) 0.1 Basophils # (Auto) 0.0 CBC Comment Sodium Level 137 Potassium Level 3.8 Chloride Level 101 Carbon Dioxide Level 28.3 Anion Gap 8 Blood Urea Nitrogen 22 H Creatinine 0.95 H Estimated GFR/1.73 m2 64 BUN/Creatinine Ratio 23.2 H Glucose Level 88 Calcium Level 9.2 Total Bilirubin 0.7 Aspartate Amino Transf (AST/SGOT) 15 Alanine Aminotransferase (ALT/SGPT) 27 Alkaline Phosphatase 71 Total Protein 7.7 Albumin 3.9 Globulin 3.8 Albumin/Globulin Ratio 1.0 L Lipase 40 Chemistry Comments Medical Decision Making Findings Patient presents to the emergency room for evaluation of abdominal pain as per HPI. Differentials include but are not limited to cholecystitis pancreatitis reflux diverticulitis appendicitis constipation therefore emergent labs ordered which were reassuring. No elevation of white blood cell count urine is clear. Patient's symptoms are spontaneously improving. Given reassuring vitals workup and physical exam I do not feel patient requires CT scan at this time however ER precautions regarding fever or worsening of symptoms discussed. Symptomatic treatment only at this time. Departure Disposition: HOME / SELF CARE / HOMELESS Impression: Primary Impression: Abdominal pain Condition: Improved Discharge Instructions: Abdominal Pain (Nonspecific) Referrals: NO PRIMARY CARE PROVIDER (PCP) Signature Scribe Signature: No scribe Attestation: The note accurately reflects work and decisions made by me.Malcolm Gomez MD 11/18/24 22:22 MALCOLM GOMEZ MD Nov 18, 2024 22:01
[2024-11-18 22:04] LABS: LEUKOCYTE ESTERASE ,URINE NEGATIVE (Neg); NITRITES, URINE NEGATIVE (Neg); OCCULT BLOOD,URINE NEGATIVE (Neg)
[2024-11-18 22:06] LABS: UA COLLECTION TYPE CLN CATCH MIDSTREAM
[2024-11-18] MEDS: ondansetron 4mg rapidly disintigrating tab PO ONE (22:52)
[2024-11-18 22:58] VITALS: BP 92/67; PULSE 80; RESP 14; TEMP 97.8; O2SAT 97
== END 2024-11-18 23:02 | disposition home or self-care (01) ==
LOC: ER 20:45
DX: R10.33 Periumbilical pain (principal); J45.909 Unspecified asthma, uncomplicated; Z86.73 Personal history of transient ischemic attack (TIA), and cerebral infarction without residual deficits; Z98.51 Tubal ligation status; Z79.82 Long term (current) use of aspirin; Z79.899 Other long term (current) drug therapy; Z72.89 Other problems related to lifestyle
CPT/HCPCS: 36415; 80053; 81003; 83690; 85025; 99283

== ENCOUNTER 2024-11-23 13:01 | Emergency (ER) | payer BC ==
[~2024-11-23] VITALS: Ht 167.6 cm; Wt 67.2 kg
[2024-11-23 14:13] LABS: MEAN PLATELET VOLUME 9.4 FL (7.4-10.4); RED CELL DISTRIBUTION WIDTH 14.1 % (11.5-14.5)
[2024-11-23 14:14] LABS: LEUKOCYTE ESTERASE ,URINE NEGATIVE (Neg); NITRITES, URINE NEGATIVE (Neg); OCCULT BLOOD,URINE NEGATIVE (Neg)
[2024-11-23 14:15] LABS: UA COLLECTION TYPE CLN CATCH MIDSTREAM
[2024-11-23 14:16] LABS: URINE HCG NEGATIVE (NEG)
[2024-11-23 14:25] LABS: CREATININE 0.76 MG/DL (0.40-0.90); TOTAL CARBON DIOXIDE 28.2 MMOL/L (24-32); eCRCL 88 ML/MIN; eGFR 83 ML/MIN
--- NOTE | 2024-11-23 14:33 | Physician Documentation ---
History of Present Illness ~ Chief Complaint: Abdominal Pain Stated Complaint: ABD PAIN Time Seen by MD: 14:21 Primary Medical Doctor: [facility] Source: patient Mode of Arrival: POV Exam Limitations: no limitations HPI Chief Complaint: Right lower quadrant abdominal pain Caveat: None Independent Historians: History of Present Illness: Patient is a 43-year-old woman who comes in complaining of acute right lower quadrant abdominal pain and pelvic pain that began Sunday work. Patient came in to the ER Sunday night who was seen by Dr. Gomez and had unremarkable lab work. He instructed to return if symptoms did not improve and we will consider imaging. Patient's pain when it began Sunday was sudden and acute. She has associated nausea. No vomiting. No diarrhea. No blood in the urine, no blood in the stool. No fever. Review of systems: All systems were reviewed and are negative except for what is indicated in the history of present illness. Past Medical History: CVA, factor two mutation, Past Surgical History: Partial hysterectomy, PFO repair Social History: No tobacco use, no alcohol use, no drug use Medications: Reviewed as documented Nursing Notes Allergies: Reviewed as documented in Nursing Notes Medication Reconciliation Allergies: Coded Allergies: No Known Allergies (Unverified , 11/23/24) Scheduled Aspirin (Ecotrin*), 1 TAB PO DAILY Triamcinolone Acetonide 0.1% Crm* (Kenalog 0.1% Crm*), 1 APPLIC TOP TID, (Reported) Past Medical History Past Medical History: CVA/TIA/Stroke, Vertigo, *CARDIOVASCULAR*, Asthma, Chronic Pain Past Surgical History: orthopedic surgeries, tubal ligation Alcohol Use: Occasionally Drug Use: none Lives with: Family Lives In: Home Occupation: employed Review of Systems All Other Systems at this time: Reviewed and Negative ROS Patient denies any other acute symptoms other than above. All other systems are negative Physical Exam Vital Signs: RN Vital Signs have been reviewed: Yes, Temperature: 98.1, Source: Oral, Heart Rate: 81, Respiratory Rate: 16, BP: 101/73, Pulse Oximetry: 99, Weight: 67.150 Oxygen Flow Rate: 0 Pulse Oximetry Reflects: adequate oxygenation Physical Exam General Appearance: MILD DISTRESS HEENT: Normal OP, moist oral mucosa, PERRL, EOMI Neck: supple, normal ROM, trachea midline Pulmonary: No respiratory distress, CTA, BS equal Cardiac: RRR, no murmur, rub or gallop, GI: nondistended, soft, RIGHT LOWER QUADRANT TENDERNESS AND RIGHT PELVIC TENDERNESS, normal bowel sounds, no guarding, no rebound : NO CVA TENDERNESS Extremities: normal ROM, no swelling, non-tender Skin: intact, dry, warm, no rashes Neuro: AAOx3, speech is clear, no focal motor weakness Psych: normal affect, good eye contact, no apparent hallucination, normal speech Progress Results/Orders Results/Orders Orders - JOSH MCNEIL MD Ultrasound Pelvis W/Orwo Dplx (11/23/24 14:27) Ct Abdomen Pelvis (11/23/24 15:56) Completed Orders - JOSH MCNEIL MD Urinalysis, Cult If Indicated (11/23/24 13:14) Hcg, Ur Ql (11/23/24 13:14) Cbc/Diff (11/23/24 13:14) BMP (11/23/24 13:14) Lipase (11/23/24 13:14) CMP (11/23/24 13:14) Ondansetron Inj. (Zofran 4mg/2ml Vial) (11/23/24 14:30) Ultrasound Pelvis W/Orwo Dplx (11/23/24 14:27) Ct Abdomen Pelvis (11/23/24 15:56) Medications Received in ER Medications (Trade) Dose Ordered Sig/Tami Route PRN Reason Start Time Stop Time Status Last Admin Dose Admin (Zofran 4mg/2ml vial) 4 mg ONCE ONCE IV 11/23/24 14:30 11/23/24 14:31 DC 11/23/24 15:11 4 MG Vital Signs 11/23/24 11/23/24 11/23/24 11/23/24 13:08 13:24 14:14 15:07 Temp 98.1 98.1 98.1 Pulse 96 81 79 Resp 18 14 16 13 B/P (MAP) 124/73 101/73 (82) 110/76 (87) Pulse Ox 98 99 97 O2 Flow Rate 0 0 0 11/23/24 11/23/24 16:13 17:44 Temp 98.1 Pulse 78 71 Resp 16 15 B/P (MAP) 113/76 (88) 108/73 Pulse Ox 98 99 O2 Flow Rate 0 Laboratory Tests Test 11/23/24 13:45 White Blood Count 5.0 Red Blood Count 5.00 Hemoglobin 14.5 Hematocrit 44.0 Mean Corpuscular Volume 88.0 Mean Corpuscular Hemoglobin 29.0 Mean Corpuscular Hemoglobin Concent 33.0 Red Cell Distribution Width 14.1 Platelet Count 228 Mean Platelet Volume 9.4 Neutrophils (%) (Auto) 67.6 Lymphocytes (%) (Auto) 21.7 Monocytes (%) (Auto) 8.9 Eosinophils (%) (Auto) 1.2 Basophils (%) (Auto) 0.6 Neutrophils # (Auto) 3.4 Lymphocytes # (Auto) 1.1 Monocytes # (Auto) 0.4 Eosinophils # (Auto) 0.1 Basophils # (Auto) 0.0 CBC Comment Urine Specimen Description Cln catch midstream Urine Color Straw Urine Clarity Clear Urine pH 6.0 Urine Specific [place] <=1.005 Urine Protein Negative Urine Glucose (UA) Negative Urine Ketones Negative Urine Occult Blood Negative Urine Nitrite Negative Urine Bilirubin Negative Urine Urobilinogen 0.2 Urine Leukocyte Esterase Negative Urine Culture Indicated Not ind Volume Urine Centrifuged 10 ml Urine HCG, Qualitative Negative Urine Comment Sodium Level 138 Potassium Level 3.4 L Chloride Level 102 Carbon Dioxide Level 28.2 Anion Gap 8 Blood Urea Nitrogen 15 Creatinine 0.76 Estimated GFR/1.73 m2 83 BUN/Creatinine Ratio 19.7 Glucose Level 92 Calcium Level 9.3 Total Bilirubin 0.6 Aspartate Amino Transf (AST/SGOT) 17 Alanine Aminotransferase (ALT/SGPT) 23 Alkaline Phosphatase 72 Total Protein 7.4 Albumin 3.6 Globulin 3.8 Albumin/Globulin Ratio 0.9 L Lipase 37 Chemistry Comments Medical Decision Making Findings Differential diagnosis includes but is not limited to: Pelvic ultrasound, indication: Right lower quadrant abdominal pain and pelvic pain Impression: Abdomen and pelvis CT scan without IV contrast, indication: Abdominal pain Impression: 1. No acute abdominal or pelvic findings. Laboratory data independent interpretation: CBC: UNREMARKABLE CMP: UNREMARKABLE Urinalysis: UNREMARKABLE Emergency department course/medical decision-making: Consultation/communications: Departure Time of Disposition: 17:11 Disposition: 01 HOME / SELF CARE / HOMELESS Impression: Primary Impression: Abdominal pain of unknown cause Condition: Stable Discharge Instructions: Abdominal Pain (Nonspecific) Additional Instructions: YOUR PAIN MAY BE MUSCULOSKELETAL IN NATURE. YOU MAY TAKE ADVIL OR TYLENOL FOR PAIN. Education Educated: Patient, Family Educated regarding: diagnosis, treatment, need for follow up Signature Scribe Signature: NO SCRIBE Attestation: No scribe JOSH MCNEIL MD Nov 23, 2024 14:33
[2024-11-23] MEDS: ondansetron/PF 4mg/2ml inj IV ONE (15:11)
--- NOTE | 2024-11-23 15:52 | RADIOLOGY REPORT ---
INDICATION: right pelvic pain TECHNIQUE: Multiple real-time grayscale transabdominal sonographic images along with color and duplex Doppler of the uterus and ovaries were obtained. COMPARISON: None FINDINGS: Status post partial hysterectomy. No evidence of pelvic cul-de-sac free fluid. Right ovary measures 2.7 x 1.9 x 1.8 cm with normal Doppler color flow. A dominant follicle incidenta lly noted measures 1.4 x 1.3 x 1.3 cm. Left ovary measures 3.0 x 2.7 x 2.1 cm with normal Doppler color flow. IMPRESSION: 1. Grossly unremarkable pelvic ultrasound status post partial hysterectomy.
--- NOTE | 2024-11-23 16:50 | RADIOLOGY REPORT ---
Exam: CT CT ABDOMEN PELVIS History: Abdominal Pain Comparison Study: None Technique: Multidetector spiral CT of the abdomen was performed from lung bases to pubic symphysis. I maging was performed without IV contrast. Axial, coronal and sagittal multiplanar reformats were obta ined from the axial data set by the technologist. Radiation Dose : 1. Abdomen/Pelvis: CTDIvol 13.13 mGy, DLP 736.05 mGy*cm. Findings: Evaluation of solid organs is limited due to lack of intravenous contrast use. Lung Bases: No acute or significant lung base finding. Normal heart size. No pleural or pericardial effusion. Liver: The liver is normal in size. No focal lesions. Gallbladder and Biliary Tree: Unremarkable Spleen: Unremarkable Pancreas: The pancreas is grossly normal in appearance. Adrenal Glands: Unremarkable Kidneys: Kidneys are grossly normal without calculi or hydronephrosis. Bladder: Grossly unremarkable for degree of distention. Bowel: The stomach is grossly normal in appearance. Small bowel and colon are normal in caliber and d istribution. The appendix is not visualized; however, no secondary findings of acute appendicitis suzanna ntified. Ascites: Absent Lymphadenopathy: No mesenteric, retroperitoneal or periportal lymphadenopathy. Abdominal Wall and Mesentery: Unremarkable. Vasculature: The visualized abdominal aorta is normal in size and caliber. Evaluation of abdominal a nd pelvic vessels is limited due to lack of intravenous contrast. Pelvic Organs: Unremarkable Musculoskeletal: No aggressive focal bony lesions, acute fractures or dislocation. IMPRESSION: 1. No acute abdominal or pelvic findings. Radiation optimization: All CT scans at this facility use at least one of these dose optimization daniel hniques: automated exposure control mA and/or kV adjustment per patient size (includes targeted exam s where dose is matched to clinical indication) or iterative reconstruction.
[2024-11-23 17:44] VITALS: BP 108/73; PULSE 71; RESP 15; TEMP 98.1; O2SAT 99
== END 2024-11-23 17:26 | disposition home or self-care (01) ==
LOC: ER 13:02
DX: R10.31 Right lower quadrant pain (principal); R10.2 Pelvic and perineal pain; R11.0 Nausea; J45.909 Unspecified asthma, uncomplicated; Z86.73 Personal history of transient ischemic attack (TIA), and cerebral infarction without residual deficits; Z98.51 Tubal ligation status
CPT/HCPCS: 36415; 74176; 76856; 80053; 81003; 81025; 83690; 85025; 93976; 96374; 99285; J2405